=== PATIENT | male | born 1960 | race African-American/Black ===

== ENCOUNTER 2021-10-25 15:09 | Observation (INO) ==
[2021-10-25] MEDS ORDERED: ONDANSETRON 4 MG/2 ML VIAL IV STA (18:09)
[2021-10-25] MEDS ORDERED: MORPHINE 2 MG/1 ML SYRINGE IV STA ×2 (18:09→22:25)
[2021-10-25] MEDS ORDERED: SODIUM CHLORIDE 0.9% 1,000 ML IV STA (18:09)
[2021-10-25 19:33] LABS: PT Patient Result 11.2 SECS (10.5-12.0); Partial Thromboplastin Time 29.9 SECS (23.8-32.1)
[2021-10-25 19:38] LABS: Basophils % 0.2 % (0.0-0.8); Hematocrit 46.5 VOL% (42.0-52.0); Hemoglobin 16.7 GM/DL (14.0-18.0); Immature Granulocytes % 0.6 %; Immature Granulocytes Absolute 0.08 #; Lymphocytes # 2.2 10*3/uL (1.4-4.0); Lymphocytes % 17.2 % (21.2-54.2); Mean Corpuscular HGB Conc 35.9 GM/DL (32-36); Mean Platelet Volume 9.7 FL (9.6-12.0); Monocytes # 1.1 10*3/uL (0.11-0.8); Monocytes % 8.6 % (1.7-12.7); Neutrophils % 73.4 % (38.7-73.9); Platelet Count 258 T/CUMM (130-400); Red Blood Count 5.41 MC/CUMM (3.8-5.5); Red Cell Distribution Width 12.5 % (9.3-17.3); White Blood Count 12.6 T/CUMM (4-12)
[2021-10-25 19:40] LABS: Albumin 3.9 G/DL (3.4-5.0); Bilirubin,Total 0.9 MG/DL (0.20-1.00); Calcium 9.5 MG/DL (8.5-10.1); Osmolality,Calculated 270.2 MOS/KG (273-304); Potassium 3.4 MMOL/L (3.5-5.1); Total Protein 8.4 G/DL (6.4-8.2)
[2021-10-25 21:23] LABS: Mucus,Urine Occasional /LPF (Occasional); Squamous Epithelial Cell,Urine Occasional /HPF (0-10)
[2021-10-25 21:28] LABS: Urine Appearance Clear (Clear); Urine Color Yellow (Yellow)
[2021-10-25 21:29] LABS: Bilirubin,Urine Negative (Negative); Blood, Urine Negative (Negative); Glucose,Urine (UA) Negative (Negative); Ketones,Urine 15 mg/dL (Negative); Nitrite,Urine Negative (Negative); Protein,Urine 100 mg/dL (Negative)
[2021-10-25] MEDS ORDERED: ONDANSETRON 4 MG/2 ML VIAL IV PRN (21:43)
[2021-10-25] MEDS ORDERED: MORPHINE 2 MG/1 ML SYRINGE IV PRN (21:43)
[2021-10-26 02:33] LABS: Hematocrit 43.7 VOL% (42.0-52.0); Hemoglobin 15.5 GM/DL (14.0-18.0)
[2021-10-26] MEDS: PANTOPRAZOLE 40 MG TABLET PO SCH (08:15)
[2021-10-26 08:40] LABS: Hematocrit 43.4 VOL% (42.0-52.0); Hemoglobin 15.2 GM/DL (14.0-18.0)
[2021-10-26 09:00] LABS: Albumin 3.3 G/DL (3.4-5.0); Bilirubin,Total 0.8 MG/DL (0.20-1.00); Calcium 9.2 MG/DL (8.5-10.1); Potassium 3.4 MMOL/L (3.5-5.1); Total Protein 7.1 G/DL (6.4-8.2)
[2021-10-26] MEDS: POTASSIUM CHLORIDE 20 MEQ TABLET PO PRN ×4 (10:08→20:38)
[2021-10-26 14:13] LABS: Hematocrit 44.6 VOL% (42.0-52.0); Hemoglobin 15.4 GM/DL (14.0-18.0)
[2021-10-26 20:20] LABS: Hematocrit 44.2 VOL% (42.0-52.0); Hemoglobin 15.5 GM/DL (14.0-18.0)
[2021-10-27 05:41] LABS: Basophils % 0.3 % (0.0-0.8); Eosinophils # 0.1 10*3/uL (0.0-0.87); Eosinophils % 0.8 % (0.00-10.9); Hemoglobin 15.9 GM/DL (14.0-18.0); Immature Granulocytes % 0.4 %; Immature Granulocytes Absolute 0.04 #; Lymphocytes # 3.7 10*3/uL (1.4-4.0); Mean Corpuscular HGB Conc 34.6 GM/DL (32-36); Mean Corpuscular Volume 89.5 FL (87-102); Mean Platelet Volume 10.1 FL (9.6-12.0); Monocytes # 0.8 10*3/uL (0.11-0.8); Monocytes % 8.5 % (1.7-12.7); Platelet Count 231 T/CUMM (130-400); Red Blood Count 5.14 MC/CUMM (3.8-5.5); Red Cell Distribution Width 12.5 % (9.3-17.3); White Blood Count 9.9 T/CUMM (4-12)
[2021-10-27 06:00] LABS: Calcium 9.7 MG/DL (8.5-10.1); Osmolality,Calculated 274.8 MOS/KG (273-304); Potassium 3.9 MMOL/L (3.5-5.1)
[2021-10-27] MEDS ORDERED: LACTATED RINGERS 1,000 ML IV SCH (08:00)
[2021-10-27] MEDS ORDERED: TAMSULOSIN 0.4 MG CAPSULE PO SCH (09:00)
[2021-10-27] MEDS: PANTOPRAZOLE 40 MG TABLET PO SCH (11:56)
[2021-10-27] MEDS ORDERED: propofoL 200 MG/20 ML VIAL IV ONE (13:44)
[2021-10-27] MEDS ORDERED: LIDOCAINE 2% 5 ML VIAL ONE (13:44)
[2021-10-27 14:26] VITALS: BP 135/79
== END 2021-10-27 15:51 | disposition home health service (06) ==
LOC: N.EDINP 15:09 → N.ED 15:09 → SUATTDRO 21:43 → N.5E 10-26 00:41
PROVIDERS: ADMIT Internal Medicine; ATTEND Internal Medicine